=== PATIENT | female | born 1950 | race African-American/Black ===

== ENCOUNTER 2021-02-28 12:18 | Emergency (ER) | payer MEDICARE, MEDICAID ==
[2021-02-28 13:04] LABS: #Basophils 0.1 10x3/uL (0.0-0.2); #Eosinphils 0.2 10x3/uL (0.0-0.5); #Monocytes 0.6 10x3/uL (0.0-1.1); #Neutrophils 4.7 10x3/uL (1.5-8.4); %Basophils 0.7 % (0.0-2.0); %Eosinophils 3.4 % (0.0-6.0); %Lymphocytes 20.9 % (18.0-47.0); %Neutrophils 66.9 % (40.0-75.0); Hemoglobin 8.8 g/dL (12.0-15.5); Mean Corpuscular HGB CONC 29.3 g/dL (32.0-36.0); Mean Corpuscular Hemoglobin 21.8 pg (27.0-33.0); Mean Corpuscular Volume 74.4 fl (81.6-98.3); Mean Platelet Volume 9.5 fl (7.4-10.4); Platelet Count 499 10x3/uL (150-450); RBC Distribution Width 16.1 % (11.5-14.5); Red Blood Cell (RBC) Count 4.03 10x6/uL (3.90-5.03)
[2021-02-28 13:21] LABS: ALT (SGPT) 17 U/L (8-55); AST (SGOT) 19 U/L (5-34); Albumin 3.7 g/dL (3.4-4.8); Alkaline Phosphatase 126 U/L (40-110); Anion Gap 12 mmol/L (10-20); BUN (Urea Nitrogen) 20 mg/dL (9.8-20.1); Bilirubin, Total 0.4 mg/dL (0.2-1.2); Calc. Creatinine Clearance 0 mL/min (70-130); Calcium 9.7 mg/dL (7.8-10.44); Carbon Dioxide 29 mmol/L (23-31); Chloride 103 mmol/L (98-107); Globulin 3.5 g/dL (2.4-3.5); Glucose 85 mg/dL (83-110); Potassium 3.7 mmol/L (3.5-5.1); Protein, Total 7.2 g/dL (5.8-8.1); Sodium 140 mmol/L (136-145)
[2021-02-28 13:29] LABS: Anisocytosis SLIGHT = 6-15 cells (100X) (0-5/hpf); Hypochromia SLIGHT = 6-15 cells (100X) (0-5/hpf); Microcytosis SLIGHT = 6-15 cells (100X) (0-5/hpf); Platelet Morphology Comment Appears Increased
[2021-02-28 13:36] LABS: SARS-CoV-2 NAA Rapid Test Not Detected (NotDetected)
== END 2021-02-28 17:12 | disposition home or self-care (01) ==
LOC: CSHERS 12:18
DX: J18.9 Pneumonia, unspecified organism (principal); R55 Syncope and collapse; I10 Essential (primary) hypertension; E07.9 Disorder of thyroid, unspecified; R79.1 Abnormal coagulation profile; Z20.822 Contact with and (suspected) exposure to COVID-19; Z87.891 Personal history of nicotine dependence; Z96.651 Presence of right artificial knee joint
CPT/HCPCS: 0240U; 71045; 71275; 83880; 84439; 84484; 85379; 93005; 36415; 80053; 84443; 85025

== ENCOUNTER 2021-08-15 10:24 | Emergency (ER) | payer MEDICARE, MEDICAID | END 2021-08-15 12:20 | disposition home or self-care (01) | LOC: CSHERS 10:24 | DX: R60.0 Localized edema (principal); I10 Essential (primary) hypertension; Z87.891 Personal history of nicotine dependence ==

== ENCOUNTER 2021-08-15 13:06 | Outpatient (CLI) | payer MEDICARE, MEDICAID ==
[~2021-08-15 13:06] MED LIST: Iopamidol 370 76% 100 ML VIAL ONE
== END 2021-08-15 13:07 | disposition home or self-care (01) ==
LOC: CSHCT 13:06
PROVIDERS: ATTEND Internal Medicine Medical Oncology
DX: M54.50 Low back pain, unspecified (principal); M47.816 Spondylosis without myelopathy or radiculopathy, lumbar region; M48.061 Spinal stenosis, lumbar region without neurogenic claudication; M89.9 Disorder of bone, unspecified; M46.1 Sacroiliitis, not elsewhere classified; M16.0 Bilateral primary osteoarthritis of hip
CPT/HCPCS: 72132; 72193

== ENCOUNTER 2021-08-23 12:40 | Outpatient (CLI) | payer MEDICARE, MEDICAID ==
[~2021-08-23 12:40] MED LIST changes: -Iopamidol 370 76% 100 ML VIAL ONE; +Magnevist 469MG/ML 20 ML VIAL ONE
== END 2021-08-23 12:41 | disposition home or self-care (01) ==
LOC: CSHMRI 12:40
PROVIDERS: ATTEND Internal Medicine Medical Oncology
DX: M89.9 Disorder of bone, unspecified (principal); Z85.3 Personal history of malignant neoplasm of breast; Q89.3 Situs inversus; R93.7 Abnormal findings on diagnostic imaging of other parts of musculoskeletal system
CPT/HCPCS: 72158

== ENCOUNTER 2022-05-04 11:05 | Outpatient (CLI) | payer MEDICARE, MEDICAID | END 2022-05-04 11:06 | disposition home or self-care (01) | LOC: CSHMAMMO 11:05 | PROVIDERS: ATTEND Family Medicine Sports Medicine | DX: Z13.820 Encounter for screening for osteoporosis (principal); Z78.0 Asymptomatic menopausal state | CPT/HCPCS: 77080 ==

== ENCOUNTER 2022-05-13 13:57 | Emergency (ER) | payer MEDICARE, MEDICAID | END 2022-05-13 16:24 | disposition home or self-care (01) | LOC: CSHERS 13:57 | DX: B35.6 Tinea cruris (principal); I10 Essential (primary) hypertension; Z87.891 Personal history of nicotine dependence | CPT/HCPCS: 99282 ==

== ENCOUNTER 2022-06-19 14:10 | Emergency (ER) | payer MEDICARE, MEDICAID ==
[2022-06-19] MEDS ORDERED: Ketorolac Tromethamine 30 MG/ML VIAL ONE (17:33)
== END 2022-06-19 19:24 | disposition home or self-care (01) ==
LOC: CSHERS 14:10
DX: S83.92XA Sprain of unspecified site of left knee, initial encounter (principal); I10 Essential (primary) hypertension; W22.09XA Striking against other stationary object, initial encounter; Z87.891 Personal history of nicotine dependence
CPT/HCPCS: 96372; J1885

== ENCOUNTER 2024-02-15 11:01 | Emergency (ER) | payer MEDICARE, MEDICAID | END 2024-02-15 14:54 | disposition home or self-care (01) | LOC: CSHERS 11:01 | DX: J06.9 Acute upper respiratory infection, unspecified (principal); I10 Essential (primary) hypertension; Z87.891 Personal history of nicotine dependence | CPT/HCPCS: 71046; 87081; 87428; 87430 ==

== ENCOUNTER 2024-05-15 20:20 | Emergency (ER) | payer MEDICARE, MEDICAID ==
[2024-05-15 22:03] LABS: Troponin I Less than 0.010 ng/mL (< 0.028)
[2024-05-15] MEDS ORDERED: traMADol HCl 50 MG TAB ONE (22:41)
== END 2024-05-15 23:10 | disposition home or self-care (01) ==
LOC: CSHERS 20:20
DX: M54.6 Pain in thoracic spine (principal); I10 Essential (primary) hypertension; E11.9 Type 2 diabetes mellitus without complications; I25.10 Atherosclerotic heart disease of native coronary artery without angina pectoris; Z95.5 Presence of coronary angioplasty implant and graft; Z87.891 Personal history of nicotine dependence
CPT/HCPCS: 36415; 84484; 93005; 99283

== ENCOUNTER 2024-11-27 12:53 | Outpatient (CLI) | payer MEDICARE, MEDICAID | END 2024-11-27 12:54 | disposition home or self-care (01) | LOC: CSHCT 12:53 | PROVIDERS: ATTEND Family Medicine Sports Medicine | DX: R10.31 Right lower quadrant pain (principal); N28.9 Disorder of kidney and ureter, unspecified; Q89.3 Situs inversus; I25.10 Atherosclerotic heart disease of native coronary artery without angina pectoris; I25.84 Coronary atherosclerosis due to calcified coronary lesion | CPT/HCPCS: 74176 ==